=== PATIENT | female | born 1980 | race African-American/Black ===

== ENCOUNTER 2021-10-27 13:36 | Emergency (ER) | payer SELFPAY ==
[2021-10-27 14:11] LABS: Bilirubin Negative (Negative); Blood, Urine Negative (Negative); Clarity Clear (Clear); Glucose, Urine (Dipstick) Normal (Negative); Ketone, Urine Negative (Negative); Leukocyte Negative Leu/uL (Negative); Nitrite Negative (Negative); Protein, Urine (Dipstick) Negative (Neg-Trace); Specific Gravity, Urine 1.014 (1.002-1.036); Urobilinogen Normal mg/dL (Less than 2); pH, Urine 6.5 (5.0-9.0)
== END 2021-10-27 14:37 | disposition home or self-care (01) ==
LOC: ERS 13:36
DX: N89.8 Other specified noninflammatory disorders of vagina (principal); K21.9 Gastro-esophageal reflux disease without esophagitis; E11.9 Type 2 diabetes mellitus without complications
CPT/HCPCS: 81003; 87480; 87510; 87660; 99283

== ENCOUNTER 2021-11-21 10:57 | Emergency (ER) | payer OTHER | END 2021-11-21 14:16 | disposition home or self-care (01) | LOC: ERS 10:57 | DX: M25.561 Pain in right knee (principal); E11.9 Type 2 diabetes mellitus without complications; K21.9 Gastro-esophageal reflux disease without esophagitis; Z79.84 Long term (current) use of oral hypoglycemic drugs; W10.8XXA Fall (on) (from) other stairs and steps, initial encounter ==